=== PATIENT | female | born 1995 | race Hispanic/Latino ===

== ENCOUNTER 2023-04-29 12:36 | Outpatient (CLI) | payer OTHER | END 2023-04-29 12:37 | disposition home or self-care (01) | LOC: BICULT 12:36 | PROVIDERS: ATTEND Family Medicine | DX: Z34.82 Encounter for supervision of other normal pregnancy, second trimester (principal); Z3A.23 23 weeks gestation of pregnancy | CPT/HCPCS: 76805 ==